=== PATIENT | female | born 1955 | race American Indian/Alaskan Native ===

== ENCOUNTER 2019-04-21 08:04 | Day surgery (SDC) | payer BC, OTHER ==
[~2019-04-21 08:04] MED LIST: Lactated Ringers 1,000 ML IV SCH; Midazolam 1 MG/ML 2 ML SDV ONE; Propofol 200 MG/20 ML SDV ONE
--- NOTE | 2019-04-21 08:47 | PCM.PREANE ---
Preanesthetic Assessment - Anesthesia/Transfusion/Family Hx Anesthesia History: Prior Anesthesia Reaction Family History of Anesthesia Reaction: No Transfusion History: No Prior Transfusion(s) Intubation History: Unknown - Review of Systems General: No Symptoms Pulmonary: No Symptoms Cardiovascular: No Symptoms Gastrointestinal: Other (guiaiac positive stools) Neurological: No Symptoms Other: Reports: None - Physical Assessment Height: 5 ft 2 in Weight: 138.799 kg ASA Class: 3 Mental Status: Alert & Oriented x3 Airway Class: Mallampati = 2 Dentition: Reports: Dentures (upper) Thyro-Mental Finger Breadths: 3 Mouth Opening Finger Breadths: 3 ROM/Head Extension: Full Lungs: Clear to Auscultation, Normal Respiratory Effort Cardiovascular: Regular Rate, Regular Rhythm - Allergies Allergies/Adverse Reactions: Allergies Allergy/AdvReac Type Severity Reaction Status Date / Time lactose Allergy Diarrhea Verified 04/19/19 10:32 - Blood Blood Available: No - Anesthesia Plan Pre-Op Medication Ordered: None - Acknowledgements Anesthesia Type Planned: MAC Pt an Appropriate Candidate for the Planned Anesthesia: Yes Alternatives and Risks of Anesthesia Discussed w Pt/Guardian: Yes Pt/Guardian Understands and Agrees with Anesthesia Plan: Yes PreAnesthesia Questionnaire HEENT History: Reports: Other (See Below) Other HEENT History: uses reading glasses, has upper denture Cardiovascular History: Reports: Arrhythmia, Heart Murmur, Hypertension Other Cardiovascular History: hx of SVT- had cardiac ablation in 2016, still experience palpitations (much shorter 15 sec.) now without syncopies. 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: Musculoskeletal History: Reports: Back Pain, Chronic, Fracture Other Musculoskeletal History: hx of fx finger Neurological History: Reports: Other (See Below) Other Neuro History: hx of motion sickness Endocrine/Metabolic History: Reports: Diabetes, Type II, Obesity/BMI 30+ ( morbid obesity BMI 56) Dermatologic History: Reports: Other (See Below) Other Dermatologic History: scratches on her legs from the cat - Past Surgical History Cardiovascular Surgical History: Reports: Cardiac Ablation GI Surgical History: Reports: Cholecystectomy, Colonoscopy (8 years ago with free air post procedure) - SUBSTANCE USE Smoking Status *Q: Former Smoker Tobacco Use Within Last Twelve Months: No Recreational Drug Use History: No - HOME MEDS Home Medications: Home Meds Albuterol Sulfate [Proair Hfa] 1 puff INH ASDIRECTED PRN 04/19/19 [History] Aspirin [Adult Low Dose Aspirin EC] 81 mg PO DAILY 04/19/19 [History] Lisinopril 40 mg PO QAM 04/19/19 [History] Mometasone Furoate [Asmanex] 1 puff INH ASDIRECTED PRN 04/19/19 [History] metFORMIN HCl [Metformin HCl ER] 500 mg PO BIDMEALS 04/19/19 [History] - CURRENT (IN HOUSE) MEDS Current Meds: Current Medications Lactated Ringer's (Ringers, Lactated) 1,000 mls @ 125 mls/hr IV ASDIRECTED CHIARA Discontinued Medications Midazolam HCl (Versed 1 Mg/Ml) Confirm Administered Dose 2 mg .ROUTE .STK-MED ONE Stop: 04/21/19 07:19 Propofol (Diprivan 20 Ml) Confirm Administered Dose 400 mg .ROUTE .STK-MED ONE Stop: 04/21/19 07:19
[2019-04-21] MEDS ORDERED: Simethicone Drops 40 MG/0.6 ML 30 ML Bottle ONE (09:16)
--- NOTE | 2019-04-21 09:40 | PCM.OPNOTE ---
- General Post-Op/Procedure Note Date of Surgery/Procedure: 04/21/19 Operative Procedure(s): colonoscopy w bx Findings: see [id number] Pre Op Diagnosis: hx of colon polyp Post-Op Diagnosis: Same Anesthesia Technique: Moderate Sedation Primary Surgeon: Ector Hawkins Pathology: 2 mm sessile polyp at 50cm when scope went out Complications: None Condition: Good
--- NOTE | 2019-04-21 10:19 | PCM.POSTAN ---
POST ANESTHESIA ASSESSMENT - MENTAL STATUS Mental Status: Alert, Oriented - VITAL SIGNS Vital Signs: Last Vital Signs Temp 36.3 C 04/21/19 08:15 Pulse 68 04/21/19 09:45 Resp 18 04/21/19 09:45 BP 143/66 H 04/21/19 09:45 Pulse Ox 92 L 04/21/19 09:45 - RESPIRATORY Respiratory Status: Respiratory Rate WNL, Airway Patent, O2 Saturation Stable - CARDIOVASCULAR CV Status: Pulse Rate WNL, Blood Pressure Stable - GASTROINTESTINAL GI Status: No Symptoms - PAIN Pain Score: 0 - POST OP HYDRATION Hydration Status: Adequate & Stable - OBSERVATIONS Free Text/Narrative:: no anesthesia problems
--- NOTE | 2019-04-21 10:20 | PCM48HPAN ---
Post Anesthesia Note - EVALUATION WITHIN 48HRS OF ANESTHETIC Vital Signs in Normal Range: Yes Patient Participated in Evaluation: Yes Respiratory Function Stable: Yes Airway Patent: Yes Cardiovascular Function Stable: Yes Hydration Status Stable: Yes Pain Control Satisfactory: Yes Nausea and Vomiting Control Satisfactory: Yes Mental Status Recovered: Yes Vital Signs: Last Vital Signs Temp 36.3 C 04/21/19 08:15 Pulse 68 04/21/19 09:45 Resp 18 04/21/19 09:45 BP 143/66 H 04/21/19 09:45 Pulse Ox 92 L 04/21/19 09:45 - COMMENTS/OBSERVATIONS Free Text/Narrative:: no anesthesia problems
[2019-04-21 10:50] VITALS: BP 139/64
--- NOTE | 2019-04-21 11:57 | OR ---
SURGEON: Ector Hawkins MD DATE OF PROCEDURE: 04/21/2019 PREOPERATIVE DIAGNOSIS: History of colon polyp. POSTOPERATIVE DIAGNOSIS: History of colon polyp. PROCEDURE PERFORMED: Colonoscopy with biopsy. DESCRIPTION OF PROCEDURE: The patient was taken to the endoscopy room. A time out was called, patient identified, and procedure identified. Diprivan was then administrated. Patient went from awake to sleep, hearing doctor talking or door closing is normal. Perineum inspection and digital examination were then performed. A well- lubricated colonoscope was gently inserted through the rectum, advanced past the rectosigmoid junction, the descending colon, splenic flexure, transverse colon, hepatic flexure, ascending colon, arrived to the cecum. Cecum was identified as dictated in the finding. Then the scope was carefully withdrawn while attention was paid to the mucosal surface for any abnormality. Air will be sucked out during the scope withdrawal. At the rectum, retroflexed to examine any rectal diseases, fistula or hemorrhoids. During mucosal examination, abnormality or polyp was noted; picture taken and biopsy performed. Patient tolerated procedure well. There were no intraoperative complications, and Dr. Hawkins was present throughout the whole procedure. FINDINGS: 1. The patient is easily sedated with NUTRITIONAL ASSISTANT and Diprivan, the patient is soundly snoring. 2. Sedation is much denial resolution specialist because of the patient's morbid obesity and asthma, and on the day of the procedure, the patient also complained a bit, slightly short of breath, so the sedation was less and denial resolution specialist, and the patient aware of that. Bowel prep is average to below average. Some liquid stool and couple of stool ball, but was able to take care with irrigation. 3. Colon is rather straightforward. Cecum indicated by ileocecal fold, one-to- one indentation, appendiceal orifice. ScopeGuide is pointing south. Light emittance is not observed. Mucosa examined upon scope pulling out with constant irrigation. The patient has diverticulosis on the hepatic flexure. No signs or symptoms of diverticulitis. There is a small 2 mm sessile polyp at distance 50 cm when scope pulling out and as the patient is breathing, it is pretty challenging to capture it. Biopsy with cold biopsy forceps, not able to do it for the second time as the patient is actively breathing and moving. It is a 2 mm sessile polyp at distance of 50. The patient does not have other mass, growth, inflammation, stricture, AV malformation, bleeding, ulcer, none of those. The patient has minimal internal hemorrhoid, no external hemorrhoid. The patient would benefit from repeat colonoscopy in 10 years from today or if clinically indicated otherwise. AYAZ / MINH /[id number]
== END 2019-04-21 10:35 | disposition home or self-care (01) ==
LOC: MW.SDS 08:04
PROVIDERS: ATTEND Surgery
DX: Z12.11 Encounter for screening for malignant neoplasm of colon (principal); K63.5 Polyp of colon; K57.30 Diverticulosis of large intestine without perforation or abscess without bleeding; K64.8 Other hemorrhoids; I10 Essential (primary) hypertension; I47.1 Supraventricular tachycardia; E11.9 Type 2 diabetes mellitus without complications; E66.01 Morbid (severe) obesity due to excess calories; J45.909 Unspecified asthma, uncomplicated; Z91.018 Allergy to other foods; Z68.43 Body mass index [BMI] 50.0-59.9, adult; Z86.010 Personal history of colon polyps; Z87.891 Personal history of nicotine dependence; Z79.82 Long term (current) use of aspirin; Z79.84 Long term (current) use of oral hypoglycemic drugs; Z79.899 Other long term (current) drug therapy
CPT/HCPCS: 45380; A9270; J2250; J2704; J7120